=== PATIENT | female | born 1985 | race Two or more races ===

== ENCOUNTER 2018-07-28 18:00 | Emergency (ER) | payer BC, OTHER ==
[~2018-07-28] VITALS: Ht 157.5 cm; Wt 77.1 kg
[2018-07-28 19:04] VITALS: BP 133/70
[2018-07-28] MEDS ORDERED: ACETAMINOPHEN/CODEINE#3 (300/30mg) TAB PO ONE (19:15)
[2018-07-28] MEDS ORDERED: BACLOFEN 10 MG TAB PO ONE (19:15)
== END 2018-07-28 20:12 | disposition home or self-care (01) ==
LOC: ER 18:07
DX: M62.838 Other muscle spasm (principal); R51 Headache; M54.2 Cervicalgia; M54.9 Dorsalgia, unspecified; V49.59XA Passenger injured in collision with other motor vehicles in traffic accident, initial encounter; Y93.89 Activity, other specified; Y99.8 Other external cause status; Y92.410 Unspecified street and highway as the place of occurrence of the external cause
CPT/HCPCS: 71111; 72040; 93005